=== PATIENT | female | born 1945 ===

== ENCOUNTER 2022-09-02 20:55 | Inpatient (IN) | payer MEDICARE ==
[2022-09-03 02:00] VITALS: BP 140/76
[2022-09-03] MEDS ORDERED: LOPRESSOR50 M1 PO (03:37)
[2022-09-03] MEDS ORDERED: NAMENDA10 MG PO (03:39)
[2022-09-03] MEDS ORDERED: ARICEPT10 M1 PO (03:40)
[2022-09-03] MEDS ORDERED: SEROQUEL25 MG PO (03:41)
[2022-09-03 06:57] LABS: BASO % 0.4 % (0.0-1.0); EOS # 0.1 10*3/uL (0.0-0.4); EOS % 2.1 % (1.0-4.0); HEMATOCRIT 43.5 % (37.0-47.0); LYMPH # 1.4 10*3/uL (1.3-4.4); LYMPH % 26.9 % (27.0-41.0); MEAN CELL VOLUME 92.4 fl (81.0-99.0); MEAN CORPUSCULAR HGB 30.6 pg (27.0-31.0); MEAN CORPUSCULAR HGB CONC 33.1 g/dl (33.0-37.0); MEAN PLATELET VOLUME 11.2 fl (9.6-12.3); MONO # 0.5 10*3/uL (0.1-1.0); MONO % 9.8 % (3.0-9.0); NEUT # 3.2 10*3/uL (2.3-7.9); NEUT % 60.6 % (47.0-73.0); PLATELET COUNT AUTOMATED 150 10*3/uL (130-400); RED BLOOD COUNT 4.71 10*6/uL (4.10-5.10); RED CELL DISTRI WIDTH 12.4 % (0-14.5); WHITE BLOOD COUNT 5.3 10*3/uL (4.8-10.8)
[2022-09-03 07:14] LABS: ALKALINE PHOSPHATASE 73 U/L (46-116); BUN 12 mg/dl (9-23); CHLORIDE 107 mmol/L (98-107); CHOLESTEROL 168 mg/dL (<200); LDL CHOLESTEROL 98 mg/dL (9-159); POTASSIUM 3.9 mmol/L (3.4-5.1); SGPT/ALT 12 U/L (10-49); THYROID STIM HORMONE (HS) 5.561 uIU/ml (0.550-4.780); TOTAL PROTEIN 6.3 gm/dL (6.0-8.0); TRIGLYCERIDES 97 mg/dl (<150)
[2022-09-03 08:15] LABS: VITAMIN D, 25-HYDROXY 22.5 ng/mL (30-100)
[2022-09-03 20:00] VITALS: BP 111/86
[2022-09-04 07:53] VITALS: BP 127/76
[2022-09-04 20:00] VITALS: BP 127/82
[2022-09-04 20:45] LABS: BILIRUBIN Negative (Negative); BLOOD Negative (Negative); CLARITY Clear (Clear); COLOR Yellow (Yellow); GLUCOSE Negative (Negative); KETONE Trace (Negative); LEUKO ESTERASE 2+ (Negative); NITRITE Negative (Negative); PH 5.5 (4.5-8.0); SPECIFIC GRAVITY >= 1.030 (1.001-1.030)
[2022-09-04 21:14] LABS: RBC 0-2 rbc/hpf (0-2); WBC 21-30 wbc/hpf (0-5)
[2022-09-05 20:00] VITALS: BP 119/82
[2022-09-06 08:06] VITALS: BP 120/90
[2022-09-06 20:00] VITALS: BP 119/72
[2022-09-07 08:00] VITALS: BP 126/86
[2022-09-07 20:00] VITALS: BP 115/60
[2022-09-08 08:00] VITALS: BP 148/75
[2022-09-08 20:00] VITALS: BP 146/74
[2022-09-09 08:26] VITALS: BP 160/85
[2022-09-09 20:00] VITALS: BP 129/68
[2022-09-10 07:32] VITALS: BP 114/57
[2022-09-10 19:50] VITALS: BP 143/52
[2022-09-11 08:00] VITALS: BP 147/76
[2022-09-11 20:00] VITALS: BP 152/66
[2022-09-12 07:39] VITALS: BP 131/66
[2022-09-12 20:00] VITALS: BP 121/70
[2022-09-13 07:40] VITALS: BP 131/69
[2022-09-13 20:00] VITALS: BP 139/82
[2022-09-14 08:00] VITALS: BP 132/67
[2022-09-14] MEDS ORDERED: Vitamin D (1,000 UNI PO (09:54)
[2022-09-14] MEDS ORDERED: B121000 MCG/1 IM (09:54)
[2022-09-14 20:00] VITALS: BP 125/62
[2022-09-15 07:45] VITALS: BP 116/95
[2022-09-16 07:39] VITALS: BP 116/58
[2022-09-16] MEDS ORDERED: MEMANTINE HCL10 MG PO (09:49)
[2022-09-16] MEDS ORDERED: RISPERIDONE0.5 MG PO (09:49)
[2022-09-16] MEDS ORDERED: RIVASTIGMINE1 EAC2 T (09:49)
== END 2022-09-16 10:00 | DRG 883 ==
LOC: 3N 20:55
PROVIDERS: ADMIT Psychiatry & Neurology Psychiatry; ATTEND Psychiatry & Neurology Psychiatry
DX: F63.81 Intermittent explosive disorder (principal); F02.82 Dementia in other diseases classified elsewhere, unspecified severity, with psychotic disturbance; G30.9 Alzheimer's disease, unspecified; F32.9 Major depressive disorder, single episode, unspecified; E55.9 Vitamin D deficiency, unspecified; I10 Essential (primary) hypertension